=== PATIENT | female | born 1960 | race African-American/Black ===

== ENCOUNTER → 2016-10-12 | Outpatient (CLI) | payer BC ==
--- NOTE | 2016-10-12 21:56 | KCIC ---
Bilateral digital screening mammograms: Reason for examination: Routine screening. Comparison is made to previous studies dated 08/14/2015 and 08/14/2014. The skin and nipples show no abnormalities. No abnormal axillary lymph nodes are seen. The breast parenchyma shows scattered fibroglandular density. (Breast density: Category B.) There are no dominant masses, suspicious calcifications or architectural distortions. Impression: No evidence of malignancy. Recommend routine screening. BI-RADS Category 1: Negative. "Our facility is accredited by the [employer] Mammography [employer]." This patient's information has been entered into a reminder system for the patient to be notified with the results of her examination and a target date for the next mammogram. Electronically signed by: Radha Baron MD (10/12/2016 9:52 PM)
== END | disposition home or self-care (01) ==
LOC: KCIC MAMMO 09:34
PROVIDERS: ATTEND Nurse Practitioner
DX: Z12.31 Encounter for screening mammogram for malignant neoplasm of breast (principal)
CPT/HCPCS: G0202; 77067

== ENCOUNTER → 2018-01-11 | Outpatient (CLI) | payer BC ==
--- NOTE | 2018-01-11 18:03 | KCIC ---
Bilateral digital screening mammograms: Reason for examination: Routine screening. Comparison is made to previous studies dated 10/12/2016 and 08/14/2015. Interpretation was made with the benefit of CAD. The skin and nipples show no abnormalities. No abnormal axillary lymph nodes are seen. The breast parenchyma is heterogeneously dense. (Breast density: Category C.) There are no dominant masses, suspicious calcifications or architectural distortion. Impression: No evidence of malignancy. Recommend routine screening. Your patient's mammogram demonstrates that she has dense breast tissue (breast density category C or D), which could hide abnormalities, and if she has other risk factors for breast cancer that have been identified, she might benefit from supplemental screening tests that may be suggested by you as her ordering physician. Dense breast tissue, in and of itself, is a relatively common condition. Therefore, this information is not provided to cause undue concern, but rather to raise your awareness and to promote discussion with your patient regarding the presence of other risk factors, in addition to dense breast tissue. Your patient's mammography results will be sent to her. BI-RAD Category 1: Negative. "Our facility is accredited by the [employer] Mammography [employer]." This patient's information has been entered into a reminder system for the patient to be notified with the results of her examination and a target date for the next mammogram. Electronically signed by: Radha Baron MD (01/11/2018 6:00 PM) [id number]
== END | disposition home or self-care (01) ==
LOC: KCIC MAMMO 09:10
PROVIDERS: ATTEND Family Medicine
DX: Z12.31 Encounter for screening mammogram for malignant neoplasm of breast (principal)
CPT/HCPCS: 77067

== ENCOUNTER → 2018-02-12 | Outpatient (CLI) | payer BC ==
[~2018-02-12] MED LIST: GADOBUTROL 7.5 MMOL/7.5 ML VIAL IV ONE; METR250T11 PO
--- NOTE | 2018-02-12 13:07 | KCIC ---
MRI of the Brain without and with Contrast 02/12/2018 Clinical History: Postconcussive impression syndrome. Abnormality in the region of the planum sphenoidale. Headaches. Technique: Unenhanced T1-weighted sagittal and axial and FLAIR, T2-weighted, gradient echo and diffusion-weighted axial images of the brain were obtained. After the intravenous administration of 6 cc of Gadavist, enhanced T1-weighted axial, sagittal and coronal images of the brain were obtained. Findings: Comparison is made to the patient's CT scan of the head dated 08/11/2004. The ventricles are within normal limits in size and configuration. Patchy and several small focal areas of abnormally increased signal intensity are seen within the periventricular and subcortical white matter of both cerebral hemispheres on the FLAIR and T2-weighted images consistent with areas of minimal small vessel ischemic disease. A homogeneously enhancing extra-axial mass is seen which arises superiorly from the region of the planum sphenoidale. This measures 1.3 x 1.1 x 1.1 cm in AP, transverse and craniocaudal dimensions.. This is consistent with a meningioma. It displaces the proximal anterior cerebral arteries laterally. No impingement upon the optic chiasm is noted. No acute parenchymal abnormality is seen. No extra-axial fluid collection is noted. There is no MRI evidence of acute ischemia/infarction. No area of abnormal parenchymal contrast enhancement is seen. Mild mucosal thickening is seen scattered throughout the paranasal sinuses. There are small bilateral mastoid effusions. Normal flow voids are seen within the major vascular structures surrounding the brain parenchyma. Impression: 1. 1.3 cm meningioma is seen arising superiorly from the region of the planum sphenoidale. 2. No acute parenchymal abnormality is seen. Electronically signed by: Hai Summers MD (02/12/2018 1:03 PM) [id number]
== END | disposition home or self-care (01) ==
LOC: KCIC MRI 07:45
PROVIDERS: ATTEND Neurological Surgery
DX: D32.0 Benign neoplasm of cerebral meninges (principal); I67.82 Cerebral ischemia; F07.81 Postconcussional syndrome
CPT/HCPCS: 70553; A9585

== ENCOUNTER → 2018-08-03 | Outpatient (CLI) | payer BC ==
[~2018-08-03] MED LIST changes: +METR-111 PO; -METR250T11 PO
--- NOTE | 2018-08-03 17:36 | KCIC ---
MRI of the brain without contrast 08/03/2018 Clinical History: Postconcussive syndrome. Meningioma. Technique: Unenhanced T1-weighted sagittal and axial, T2-weighted axial and coronal and FLAIR, gradient echo and diffusion-weighted axial images of the brain were obtained. The radiologic technologist was unable to establish IV access in this patient and postcontrast imaging was unable to be performed. Findings: Comparison study is dated 02/12/2018. The ventricles and sulci are within normal limits in size and configuration. Patchy and a few small scattered areas of increased signal intensity are seen within the periventricular and subcortical white matter of both cerebral hemispheres on the FLAIR and T2-weighted images consistent with areas of minimal small vessel ischemic disease. These have not significant changed. An extra-axial mass is seen which arises superiorly from the region of the planum sphenoidale. This measures 1.3 cm in greatest diameter. It is consistent with a meningioma. It is unchanged from the previous examination. The mild mass effect is unchanged. No acute parenchymal abnormality is seen. No extra-axial fluid collection is seen. There is no MRI evidence of acute ischemia/infarction. There is no MRI evidence of intraparenchymal hemorrhage. Mild mucosal thickening in seen scattered throughout the paranasal sinuses. There are small bilateral mastoid effusions. Normal flow voids are seen within the major vascular structures surrounding the brain parenchyma. Impression: 1. Stable MRI appearance of the 1.3 cm meningioma arising from the region of the planum sphenoidale. 2. No acute parenchymal abnormality is seen. Electronically signed by: Hai Summers MD (08/03/2018 5:33 PM) [id number]
== END | disposition home or self-care (01) ==
LOC: KCIC MRI 12:24
PROVIDERS: ATTEND Neurological Surgery
DX: D32.0 Benign neoplasm of cerebral meninges (principal); F07.81 Postconcussional syndrome; J34.89 Other specified disorders of nose and nasal sinuses; H74.8X3 Other specified disorders of middle ear and mastoid, bilateral
CPT/HCPCS: 70551

== ENCOUNTER → 2019-01-25 | Outpatient (CLI) | payer BC ==
[~2019-01-25] MED LIST changes: -GADOBUTROL 7.5 MMOL/7.5 ML VIAL IV ONE
--- NOTE | 2019-01-25 16:38 | KCIC ---
Bilateral digital screening mammograms: Reason for examination: Routine screening. Comparison is made to previous studies dated 01/11/2018 and 10/12/2016. Interpretation was made with the benefit of CAD. The skin and nipples show no abnormalities. No abnormal axillary lymph nodes are seen. The breast parenchyma is heterogeneously dense. (Breast density: Category C.) There appears be some focal nodularity anterior superiorly in the left breast on oblique view. Further evaluation with coned compression views and CC and true lateral projections as well as with left breast ultrasound is recommended. There are no other dominant masses, suspicious calcifications or architectural distortion. Impression: Small nodular densities seen in the anterior superior left breast on oblique view. Recommend further evaluation with additional cone compression views and ultrasound. Your patient's mammogram demonstrates that she has dense breast tissue (breast density category C or D), which could hide abnormalities, and if she has other risk factors for breast cancer that have been identified, she might benefit from supplemental screening tests that may be suggested by you as her ordering physician. Dense breast tissue, in and of itself, is a relatively common condition. Therefore, this information is not provided to cause undue concern, but rather to raise your awareness and to promote discussion with your patient regarding the presence of other risk factors, in addition to dense breast tissue. Your patient's mammography results will be sent to her. BI-RAD Category 0: Incomplete. Needs additional imaging evaluation. "Our facility is accredited by the [employer] Mammography [employer]." This patient's information has been entered into a reminder system for the patient to be notified with the results of her examination and a target date for the next mammogram. Electronically signed by: Radha Baron MD (01/25/2019 4:35 PM) [place] [id number]
== END | disposition home or self-care (01) ==
LOC: KCIC MAMMO 14:03
PROVIDERS: ATTEND Family Medicine
DX: N63.20 Unspecified lump in the left breast, unspecified quadrant (principal); N64.89 Other specified disorders of breast; Z12.31 Encounter for screening mammogram for malignant neoplasm of breast
CPT/HCPCS: 77067

== ENCOUNTER → 2019-02-18 | Outpatient (CLI) | payer BC ==
--- NOTE | 2019-02-18 13:03 | KCIC ---
Left breast diagnostic digital mammograms: Reason for examination: Nodular density on screening mammogram. Comparison is made to mammographic exam dated 01/25/2019. Coned compression views were obtained in CC and lateral projections. With these additional views, the area of nodularity does not appear to persists and may represent some superimposed tissues. Further evaluation with ultrasound will follow. IMPRESSION: No suspicious abnormality seen additional views. Ultrasound to follow. BI-RADS Category 0: Incomplete. Needs additional imaging evaluation. Left breast ultrasound: Ultrasound examination of the superior left breast and axilla was performed. There are some minimal fibrocystic changes at the 10:00 position 2 cm from the nipple and at the 1:00 position. There are no suspicious nodules seen. No abnormal appearing lymph nodes are seen in the left axilla. IMPRESSION: Minimal fibrocystic changes present. No suspicious abnormality seen. Recommend 6 month follow-up with ultrasound. BI-RADS Category 3: Probably Benign. "Our facility is accredited by the [employer] Mammography Program." This patient's information has been entered into a reminder system for the patient to be notified with the results of her examination and a target date for the next mammogram. Electronically signed by: Radha Baron MD (02/18/2019 1:01 PM) [id number]
== END | disposition home or self-care (01) ==
LOC: KCIC MAMMO 09:48
PROVIDERS: ATTEND Family Medicine
DX: R92.8 Other abnormal and inconclusive findings on diagnostic imaging of breast (principal)
CPT/HCPCS: 76641; 77065

== ENCOUNTER → 2019-10-18 | Outpatient (CLI) | payer BC ==
[~2019-10-18] MED LIST changes: +GADOTERATE 7.5 MMOL/15ML VIAL. IVP ONE
--- NOTE | 2019-10-18 11:20 | KCIC ---
MRI Brain with and without contrast History:Meningioma follow-up Technique: Multiplanar, multi sequential pre and postcontrast MR imaging was performed of the brain. Comparison: Exams dating back to February 12, 2018 Findings: There is again enhancing extra-axial mass along the posterior planum sphenoidale extending to the anterior margin of the suprasellar cistern measuring about 1.2 cm AP by 1.2 cm cc by 1.2 cm transverse. Size and morphology are similar. There is again contact of the anterior cerebral arteries bilaterally. No new abnormal intracranial enhancement is identified. There is no new midline shift or extra-axial fluid collection. Ventricular size is stable, within normal limits. There is minimal T2 and FLAIR hyperintense signal of the supratentorial parenchyma bilaterally as seen previously. There is again prominent increased CSF signal of the optic nerve sheaths bilaterally and small pituitary gland. Cerebellar tonsils are normal in location. There is preserved marrow signal of the clivus. There is patchy minimal ethmoid air cell mucosal thickening. There is minimal fluid of the mastoid air cells bilaterally. There is no evidence of recent infarct. Impression: 1. There is similar extra-axial enhancing mass along the posterior aspect of the planum sphenoidale alley, evidence of meningioma. 2. There is again prominent increased CSF signal of the optic nerve sheaths and small pituitary gland, nonspecific findings which could be incidental although can be associated with intracranial hypertension. Electronically signed by: Yomi Davis MD (10/18/2019 11:17 AM) [place] [id number]
== END | disposition home or self-care (01) ==
LOC: KCIC MRI 10:04
PROVIDERS: ATTEND Neurological Surgery
DX: R22.0 Localized swelling, mass and lump, head (principal); D32.9 Benign neoplasm of meninges, unspecified; I10 Essential (primary) hypertension
CPT/HCPCS: 70553; A9575

== ENCOUNTER → 2019-11-19 | Outpatient (CLI) | payer BC ==
[~2019-11-19] MED LIST changes: -GADOTERATE 7.5 MMOL/15ML VIAL. IVP ONE
--- NOTE | 2019-11-19 13:04 | KCIC ---
EXAM: Left breast sonogram. HISTORY: 59-year-old female presents for follow-up evaluation of suspected benign fibrocystic changes within the left breast demonstrated on a sonogram dated 02/18/2019. TECHNIQUE: Sonographic imaging of the left breast targeted to the site of prior suspected fibrocystic change was performed. COMPARISON: 02/18/2019. FINDINGS: There are stable benign-appearing fibrocystic changes at the 10:00 and 1:00 positions. There is no new suspicious lesion within the left breast. There are benign-appearing left axillary lymph nodes. IMPRESSION: 1. Stable benign-appearing fibrocystic changes within the left breast. No new suspicious sonographic finding. 2. BI-RADS Category 2: Benign finding(s). The patient will be due for bilateral mammography in 3 months according to a previously established bilateral mammography interval. Electronically signed by: Rebecca Carvalho MD (11/19/2019 1:01 PM) [id number]
== END | disposition home or self-care (01) ==
LOC: KCIC US 12:30
PROVIDERS: ATTEND Family Medicine
DX: R92.2 Inconclusive mammogram (principal)
CPT/HCPCS: 76641